=== PATIENT | male | born 1975 | race Two or more races ===

== ENCOUNTER 2022-01-07 12:18 | Emergency (ER) | payer OTHER ==
[~2022-01-07] VITALS: Ht 160 cm; Wt 72.6 kg
[2022-01-07] MEDS ORDERED: LEVOTHYROXINE25 MCG (12:39)
[2022-01-07] MEDS ORDERED: KETO10TA2 PO (15:43)
== END 2022-01-07 15:55 | disposition home or self-care (01) ==
LOC: ER 12:18
DX: S40.011A Contusion of right shoulder, initial encounter (principal); W22.09XA Striking against other stationary object, initial encounter; Y93.89 Activity, other specified; Y92.018 Other place in single-family (private) house as the place of occurrence of the external cause; Y99.9 Unspecified external cause status; Q90.9 Down syndrome, unspecified; N19 Unspecified kidney failure; E03.9 Hypothyroidism, unspecified